=== PATIENT | female | born 1965 | race Caucasian/White ===

== ENCOUNTER 2017-05-28 08:17 | Emergency (ER) | payer MEDICARE, MEDICAID ==
[~2017-05-28] VITALS: Ht 162.6 cm; Wt 82.0 kg
[2017-05-28 08:22] VITALS: BP 144/82
[2017-05-28 08:51] LABS: BASOPHILS # (AUTO) 0.1 X10'3 (0-0.2); BASOPHILS % (AUTO) 0.6 % (0-1); EOSINOPHILS # (AUTO) 0.2 X10'3 (0-0.9); EOSINOPHILS % (AUTO) 2.2 % (0-6); HEMATOCRIT 43.7 % (35.0-45.0); HEMOGLOBIN 14.3 g/dl (12.0-16.0); LYMPHOCYTES # (AUTO) 1.2 X10'3 (1.1-4.8); LYMPHOCYTES % (AUTO) 14.4 % (21-51); MEAN CORPUSCULAR HEMOGLOBIN 25.2 PG (27.0-31.0); MEAN CORPUSCULAR HGB CONC 32.8 % (33.0-36.5); MEAN CORPUSCULAR VOLUME 76.8 FL (78-98); MEAN PLATELET VOLUME 8.8 FL (7.4-10.4); MONOCYTES # (AUTO) 0.5 X10'3 (0-0.9); MONOCYTES % (AUTO) 6.4 % (2-12); NEUTROPHILS # (AUTO) 6.5 X10'3 (1.8-7.7); NEUTROPHILS % (AUTO) 76.4 % (42-75); PLATELET COUNT 174 X10'3 (140-440); RED BLOOD COUNT 5.68 X10'6 (4.20-5.60); RED CELL DISTRIBUTION WIDTH 17.1 % (11.5-14.5); WHITE BLOOD COUNT 8.6 X10'3 (4.5-11.0)
[2017-05-28 09:01] LABS: INR 1.1 INR; PARTIAL THROMBOPLASTIN TIME 25 SECONDS (22-32); PROTHROMBIN TIME 10.9 SECONDS (9.0-12.0)
[2017-05-28 09:06] LABS: ALANINE AMINOTRANSFERASE 56 U/L (12-78); ALBUMIN 3.4 G/DL (3.4-5.0); ALBUMIN/GLOBULIN RATIO 0.9 (1.1-1.5); ALKALINE PHOSPHATASE 124 IU/L (46-116); ANION GAP 9 (8-16); ASPARTATE AMINO TRANSFERASE 54 U/L (10-37); BILIRUBIN,TOTAL 0.7 MG/DL (0.1-1.0); BLOOD UREA NITROGEN 27 MG/DL (7-18); BUN/CREATININE RATIO 28.4 (6.6-38.0); CALCIUM 8.4 MG/DL (8.5-10.1); CHLORIDE 100 MMOL/L (99-107); CREATININE 0.95 MG/DL (0.40-0.90); GLUCOSE 179 MG/DL (70-104); POTASSIUM 3.9 MMOL/L (3.5-5.1); SODIUM 136 MMOL/L (135-145); TOTAL PROTEIN 7.3 G/DL (6.4-8.2); eGFR 62 ML/MIN
== END 2017-05-28 10:24 | disposition left against medical advice (07) ==
LOC: ER 08:18
DX: R06.02 Shortness of breath (principal); Z53.21 Procedure and treatment not carried out due to patient leaving prior to being seen by health care provider
CPT/HCPCS: 36415; 71045; 80053; 83880; 84484; 85025; 85610; 85730; 93005

== ENCOUNTER 2024-11-23 11:33 | Inpatient (IN) | payer MEDICARE, MEDICAID ==
[~2024-11-23] VITALS: Ht 154.9 cm; Wt 88.0 kg
[2024-11-23 12:16] LABS: MEAN PLATELET VOLUME 8.6 FL (7.4-10.4); RED CELL DISTRIBUTION WIDTH 13.6 % (11.5-14.5)
--- NOTE | 2024-11-23 12:25 | Physician Documentation ---
History of Present Illness ~ Chief Complaint: Chest Pain Stated Complaint: DIFIBRILLATOR COMPLICATIONS Time Seen by MD: 12:05 OK to notify your PCP?: No Source: patient, family Mode of Arrival: POV, Ambulatory Exam Limitations: no limitations HPI 59-year-old female with a history of congestive cardiomyopathy diagnosed in 2003 and an AICD placed in 2005. She presented after an episode yesterday at her chiropractor's office. Around 12:15 PM, while receiving electrical stimulation therapy to her lower back, her AICD discharged. Sine the event, she has experienced mild chest soreness. She denies recurrent shocks, palpitations, syncope, or dyspnea. She contacted her county agricultural agent, Dr. Moyer, but the earliest aailable appointment was on the , so she came here for evaluation. Medication Reconciliation Allergies: Coded Allergies: atorvastatin (Verified Allergy, Severe, 11/23/24) gabapentin (Verified Allergy, Severe, 11/23/24) valsartan (Verified Allergy, Severe, 11/23/24) lactose (Unverified Adverse Reaction, Unknown, 11/24/24) pt reports lactose intolerance Uncoded Allergies: ATROVASTIN (Allergy, Intermediate, 05/28/17) Scheduled Amiodarone HCl (Amiodarone HCl), 2 TAB PO BID Empagliflozin (Jardiance), 1 TAB PO QAM, (Reported) Evolocumab (Repatha Sureclick), 140 MG SQ Q2W, (Reported) Furosemide (Furosemide), 1 TAB PO BID, (Reported) Icosapent Ethyl (Icosapent Ethyl), 2 CAP PO BID, (Reported) Metoprolol Succinate (Metoprolol Succinate), 1 TAB PO DAILY, (Reported) Omeprazole (Prilosec), 1 CAP PO DAILY, (Reported) Sacubitril/Valsartan (Entresto 49 mg-51 mg Tablet), 1 TAB PO Q12H, (Reported) Miscellaneous Medications Insulin Regular, Human (Humulin R U-500 Kwikpen), (Reported) Past Medical History Past Medical History: *CARDIOVASCULAR*, Congestive Heart Failure Past Surgical History: pacemaker Drug Use: none Lives In: Home Review of Systems All Other Systems at this time: Reviewed and Negative ROS As stated above in the HPI, otherwise all systems are reviewed and negative. Cardiovascular: Reports: chest pain Physical Exam Vital Signs: RN Vital Signs have been reviewed: Yes, Temperature: 98.9, Source: Oral, Heart Rate: 80, Respiratory Rate: 16, BP: 95/51, Pulse Oximetry: 99, Weight: 88.000 Pulse Oximetry Reflects: adequate oxygenation Physical Exam VITALS: Reviewed and as above. GENERAL: Alert, no apparent distress. HEENT: Normocephalic, atraumatic, PERRL, EOMI, dry mucosa, no erythema RESPIRATORY: Lungs clear, normal breath sounds, no respiratory distress. CHEST: No accessory muscle use, no retractions CV: Regular rate, rhythm, no edema, no murmur, No: JVD GI: Soft, non-tender, bowels sounds present, no rebound, guarding, or rigidity BACK: No CVA tenderness, or swelling MUSCULOSKELETAL No deformities, no edema SKIN: Warm and dry, no rash NEURO: Oriented x4, No motor or sensory deficit PSYCH: Normal mood and affect, no agitation Progress Progress Note 1353: Hospitalist paged. 1435: Case discussed with internal medicine resident, who agrees to evaluate for admission. Results/Orders Reviewed/noted all lab results: Yes Results/Orders Orders - LINO CARD MD Chest,Single View (11/23/24 11:59) Monitor (11/23/24 11:59) Saline Lock (11/23/24 11:59) Electrocardiogram (11/23/24 11:59) Completed Orders - LINO CARD MD Chest,Single View (11/23/24 11:59) Cbc/Diff (11/23/24 11:59) BMP (11/23/24 11:59) PBNP (11/23/24 11:59) Electrocardiogram (11/23/24 11:59) Hs Troponin I W Calculations (11/23/24 11:59) Hs Troponin I W Calculations (11/23/24 13:59) Hs Troponin I W Calculations (11/23/24 14:59) Normal Saline 1000ml (0.9% Sodium Chlori (11/23/24 13:55) TSH (11/23/24 13:53) Hgb A1c (11/23/24 11:45) CK (11/23/24 11:45) C-Reactive Protein (11/23/24 11:45) Lipid Panel (11/23/24 11:45) Osmolality (11/23/24 11:45) Laboratory Tests Test 11/23/24 11:45 11/23/24 14:14 White Blood Count 8.9 Red Blood Count 4.91 Hemoglobin 14.6 Hematocrit 42.5 Mean Corpuscular Volume 86.5 Mean Corpuscular Hemoglobin 29.8 Mean Corpuscular Hemoglobin Concent 34.4 Red Cell Distribution Width 13.6 Platelet Count 306 Mean Platelet Volume 8.6 Neutrophils (%) (Auto) 69.7 Lymphocytes (%) (Auto) 22.8 Monocytes (%) (Auto) 6.1 Eosinophils (%) (Auto) 0.8 Basophils (%) (Auto) 0.6 Neutrophils # (Auto) 6.2 Lymphocytes # (Auto) 2.0 Monocytes # (Auto) 0.5 Eosinophils # (Auto) 0.1 Basophils # (Auto) 0.1 CBC Comment D-Dimer 2.36 H D-Dimer Comment Sodium Level 134 L Potassium Level 4.7 Chloride Level 95 L Carbon Dioxide Level 28.9 Anion Gap 10 Blood Urea Nitrogen 93 H Creatinine 1.83 H Estimated GFR/1.73 m2 28 BUN/Creatinine Ratio 50.8 H Glucose Level 347 H Hemoglobin A1c 8.5 H Osmolality 331 H Calcium Level 9.3 Total Creatine Kinase 57 Troponin I High Sensitivity 29 24 C-Reactive Protein 1.60 H Pro-B-Type Natriuretic Peptide 711 H Albumin 3.7 Triglycerides Level 257 H Cholesterol Level 162 LDL Cholesterol 81 HDL Cholesterol 43 Cholesterol/HDL Ratio 3.8 Procalcitonin < 0.05 Chemistry Comments Troponin I High Sens Percent Delta 17 Troponin I Hi Sens Absolute Change -5 Thyroid Stimulating Hormone (TSH) 1.06 EKG/XRAY/CT/US/VASC/MRI EKG : Additional Comment 1233: EKG interpreted by myself to show NSR at a rate of 69bpm. LAD, LVH, nonspecific ST abnormalities. Chest X-Ray : Additional Comments EXAM: DI CHEST,SINGLE VIEW Indication: CP Technique: Single frontal view of the chest was obtained Comparison: None FINDINGS: Lines and Tubes: None Lungs: No focal consolidation. Pleura: No effusion. No pneumothorax. Cardiomediastinal contours: Unremarkable Bones: No acute osseous abnormality. IMPRESSION: No acute cardiopulmonary disease. Reviewed by myself Medical Decision Making Additional info obtained from: old records Findings The patient states that she had a defibrillation occurred the day prior to her arrival in the emergency department. The patient's AICD is on interpretable because the battery appears to be . The patient was told her battery was by Cardiology in the past. The patient's episode of chest pain may or may not be related to the pacemaker this time we are unsure. The patient will be admitted for cardiac evaluation and further management. The patient's laboratory monitor was interpreted as a sinus rhythm. The patient's pulse oximetry was interpreted as normal and adequate. I did see the patient with the resident I am responsible and have completed the note and I have supervised all aspects of the residents care the patient was admitted to the hospitalist Departure Time of Disposition: 13:53 Disposition: ADMITTED INPATIENT Admitted to Inpatient Unit: yes, to hospitalist Impression: Primary Impression: Hyperglycemia Additional Impressions: Dehydration Chest pain Qualified Codes: R07.9 - Chest pain, unspecified WANDA (acute kidney injury) Condition: Fair Referrals: NO PRIMARY CARE PROVIDER (PCP) Prescriptions Amiodarone HCl (Amiodarone HCl) 200 Mg Tablet 2 TAB PO BID for 30 Days, #88 TAB 0 Refills take 2 tablets of 200 mg every 12 hours for 2 weeks, then take 1 tablet of 200 mg every 12 hours until visiting your county agricultural agent. Prov: BRENT GODOYSAPPHIRE Perry, RES 11/25/24 Signature Scribe Signature: Scribed for Lino Card MD by Raymond Orr . 11/23/24 14:36 Attestation: The note accurately reflects work and decisions made by me.Lino Card MD 11/29/24 11:02 JUAN LARA, RES Nov 23, 2024 12:25 RAYMOND SANCHZE Nov 23, 2024 14:39 LINO CARD MD Nov 29, 2024 11:02
[2024-11-23 12:31] LABS: CREATININE 1.83 MG/DL (0.40-0.90); PRO BRAIN NATRIURETIC PEPTIDE 711 PG/ML (0-125); TOTAL CARBON DIOXIDE 28.9 MMOL/L (24-32); eCRCL 26 ML/MIN; eGFR 28 ML/MIN
--- NOTE | 2024-11-23 12:35 | ELECTROCARDIOGRAPH REPORT ---
[facility] Test Date: 2024-11-23 Test Time: 12:33:55 Pat Name: ROBERT CASTANEDA Department: [facility]-ER Patient ID: [facility]-[id number] Room: ED [facility] Gender: F Chauffeur: : 1965 Requested By: MICAELA JOEL Order Number: [id number] Reading MD: Dr. Michele Bender Measurements Intervals [place] Rate: 69 P: 38 AL: 196 QRS: -33 QRSD: 121 T: 159 QT: 431 QTc: 462 Interpretive Statements Sinus rhythm Ventricular premature complex Left ventricular hypertrophy Anterior Q waves, possibly due to LVH Abnormal T, consider ischemia, lateral leads Baseline wander in lead(s) V2 Electronically Signed On 11-23-2024 19:38:[address] Michele Bender Please click the below link to view image of tracing.
--- NOTE | 2024-11-23 12:55 | RADIOLOGY REPORT ---
EXAM: DI CHEST,SINGLE VIEW Indication: CP Technique: Single frontal view of the chest was obtained Comparison: None FINDINGS: Lines and Tubes: None Lungs: No focal consolidation. Pleura: No effusion. No pneumothorax. Cardiomediastinal contours: Unremarkable Bones: No acute osseous abnormality. IMPRESSION: No acute cardiopulmonary disease.
[2024-11-23] MEDS: normal saline 1000ML IV soln IVB ONE (15:26)
[2024-11-23] MEDS ORDERED: potassium Cl 40MEQ/1/2NS 520ml 520 ML IV PRN (15:30)
[2024-11-23] MEDS ORDERED: magnesium sulf-water 2g/50mL 50 ML IV PRN (15:30)
[2024-11-23] MEDS ORDERED: ondansetron/PF 4mg/2ml inj IV PRN (15:30)
[2024-11-23] MEDS ORDERED: magnesium hydroxide 30ml (MOM) UD suspension PO PRN (15:30)
[2024-11-23] MEDS ORDERED: magnesium sulf-water 4G/100mL 100 ML IV PRN (15:30)
[2024-11-23] MEDS ORDERED: magnesium Cl slow-release 64mg tablet PO PRN (15:30)
[2024-11-23] MEDS ORDERED: potassium Cl 20 mEq SR tablet PO PRN ×2 (15:30)
[2024-11-23] MEDS ORDERED: mag hydrox/Alum hydrox/simeth 30ml oral suspension PO PRN (15:30)
[2024-11-23] MEDS ORDERED: DEXTROSE 15 GM of carb/4 tabs (each vial/BOTTLE has 4 tablets) PO PRN (15:35)
[2024-11-23] MEDS ORDERED: dextrose 50%-water 50ml dispensing syringe IV PRN ×2 (15:35)
[2024-11-23] MEDS ORDERED: glucagon, human recombinant 1mg kit SUBCUT PRN (15:35)
--- NOTE | 2024-11-23 15:44 | HISTORY AND PHYSICAL-Residence ---
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 Since then she has moderate chest discomfort but denies syncope, palpitation, dizziness, shortness of breath, cough, fever or hemoptysis. No other symptoms reported. Allergies: Coded Allergies: atorvastatin (Verified Allergy, Severe, 11/23/24) gabapentin (Verified Allergy, Severe, 11/23/24) valsartan (Verified Allergy, Severe, 11/23/24) lactose (Unverified Adverse Reaction, Unknown, 11/24/24) pt reports lactose intolerance Uncoded Allergies: ATROVASTIN (Allergy, Intermediate, 05/28/17) Past Medical History Past Medical History Cardiomyopathy in 2003 secondary to viral myocarditis Heart failure with reduced ejection fraction Francisco esophagus, last EGD in 2017 Type 2 diabetes mellitus on high dose insulin CVA in 2013 Hypertension Hyperlipidemia Past Surgical History Surgical History Comment ICD insertion in 2007 with replacement in 2016 due to device infection Cholecystectomy Past Social History Smoking: Quit greater than 1 year (Patient used to smoke one pack a day, quit in 2003) Alcohol Use: Occasionally Drug Use: Marijuana Lives with: Spouse Lives In: Home ROS All Other Systems: Reviewed and Negative Constitutional: Reports: weakness Eyes: Reports: no symptoms reported ENT: Reports: no symptoms reported Respiratory: Reports: no symptoms reported Cardiovascular: Reports: chest pain Gastrointestinal: Reports: no symptoms reported Genitourinary: Reports: no symptoms reported Female Genitalia: Reports: no reported symptoms Neurological: Reports: no symptoms reported Musculoskeletal: Reports: back pain Integumentary: Reports: no symptoms reported Allergic/Immunologic: Reports: no symptoms reported Hematologic/Lymphatic: Reports: no symptoms reported Endocrine: Reports: no symptoms reported Psychiatric: Reports: no symptoms reported Exam Vitals: Vital Signs Date Time Temp Pulse Resp B/P (MAP) Pulse Ox O2 Delivery O2 Flow Rate FiO2 11/23/24 12:15 68 16 105/45 (65) 97 0 11/23/24 11:54 98.9 General: General: Awake and Alert, no acute distress. HEENT: Conjunctiva pink, Sclera clear, Mucus Membranes dry Neck: Supple without masses and tenderness. Resp: Unlabored. Lungs clear to auscultation bilaterally. Heart: Regular Rate and rhythm, normal S1 and S2 without murmur, rub or gallop. Abdomen: Soft and non tender no organomegaly Extremities: No cyanosis,clubbing or edema. Skin: Warm and Dry. Diagnostic Data Last Recorded Lab Results: 11/23/24 1145 11/23/24 1145 Advance Care Planning Advanced Care plannin - 30 Minutes (Patient wishes to be full code) Additional Plan Assessment and plan 1. Chest discomfort after AICD shock and discharge 2. Chronic systolic HFrEF (EF 30%), not on acute exacerbation Assessment Patient felt a shock and chest discomfort while receiving electrical stimulation therapy Denies fever, cough or shortness for breath States using Lasix 80 mg b.i.d. Troponins negative BNP 711 WBC 8.9 CXR: No acute disease Plan Continuous telemetry Cardiology consultation Continue home medication Hold Lasix today Unable to contact [facility], responsive before the AICD Pending med reconciliation 3. Dehydration 4. Acute kidney injury, most likely secondary to prerenal nephropathy Patient states using Lasix 80 mg b.i.d. Minimal decrease of oral intake No nausea, vomiting or diarrhea Plan Patient received 2000 mL of NS in the ER Hold Lasix today Cautious hydration with LR at 75 mL/hr 5. Type 2 diabetes mellitus 6. Hypertension, well controlled 7. Hyperlipidemia, well controlled On insulin 35 - 35 - 25 units Ordered A1c Ordered lipid panel Hyper/hypoglycemia protocol Code Status: Full code DVT prophylaxis: Heparin Analgesia/sedation: Morphine/[place] Line/tube: PIV GI prophylaxis: None Nutrition: 75 carb diet Physical therapy: Yes Prognosis: Guarded Disposition: Admit to medical floor with telemetry. Resident attestation The above note has been reviewed and supervised by a senior resident PGY2/PGY3 Patient was seen, examined and discussed with the attending physician Date of Service: Nov 23, 2024 Billing Provider: NATALIA ROSA MD Common Visit Codes: 61869-KDPBCAT INP/OBS CARE (HIGH) Secondary Visit Codes: 02102-[id number] CARE PLAN 30 MINUTES KATHLEEN BOND RES Nov 23, 2024 15:44 NATALIA ROSA MD Nov 24, 2024 22:01
[2024-11-23 15:53] LABS: OSMOLALITY 331 MOSM/K (280-300)
[2024-11-23 15:56] LABS: CHOL/HDL RATIO 3.8 (0.00-4.99); LDL CHOLESTEROL 81 MG/DL (50-100)
[2024-11-23] MEDS: INSULIN LISPRO 100 UNIT/ML INSULN.PEN MULTI-DOSE SQ SCH (17:24)
--- NOTE | 2024-11-23 18:55 | CARDIOLOGY REPORT ---
APPROVED REPORT EXAM: Comprehensive 2D, Doppler, and color-flow Echocardiogram. Patient Location: ER RM 7 Blood Pressure: 104/45 mmHg Heart Rate: 67 bpm Rhythm: Sinus Indications Congestive Heart Failure Cardiomyopathy ProBNP: 711 HX of CHF AICD SHAPE BRICK MOLDER: Valentina Moyer MD Previous ECHO: Unavailable 2D Dimensions LA Diam4.6 cm IVSd 0.8 (0.7-1.1cm) LVDd 6.1 cm PWd 1.1 (0.7-1.1cm) IVSs 1.3 (0.8-1.2cm) LVDs 5.1 (2.5-4.0cm) PWs 1.1 (0.8-1.2cm) LVOT Diameter 2.17 (1.8-2.4cm) LVEF(%) 34.1 (>50%) Ao Asc Diam.3.69 cm IVC 13.60 mmFS (%) 16.6 % SV 64.1 ml CO 4.3 L/min M-Mode Dimensions Left Atrium(MM) 4.76 (2.5-4.0cm) Aortic Root 3.27 (2.2-3.7cm) Aortic Cusp Exc 1.83 (1.5-2.0cm) MV EPSS 0.7 (<0.5cm) Aortic Valve AoV Peak Andrew. 108.8 cm/s AoV VTI 23.9 cm AO Peak GR. 4.7 mmHg AO Mean GR. 2 mmHg LVOT VTI 19.45 cm LVOT Peak Andrew. 77.1 cm/s FAN(VTI)/BSA 3.00 cm2/m2 FAN (VTI) 3.00 cm2 AI P 1/2 Time 560 ms Mitral Valve MV E Velocity 60.3 cm/s MV Peak Gr. 1 mmHg MV DECEL TIME 188 ms MV A Velocity 90.4 cm/s MV PHT 68 ms E/A Ratio 0.7 MVA (PHT) 3.24 cm2 MV VMax60.8 cm/s TDI Lateral E' P. V7.70 cm/s E/Lateral E' 7.8 Tricuspid Valve TR P. Velocity 285 cm/s RAP ESTIMATE 10 mmHg TR Peak Gr. 33 mmHg RVSP 43 mmHg LEFT VENTRICLE Left ventricle is mildly dilated with normal wall thickness. Overall systolic function is severely de creased. LVEF is pytkeuwifunsew71-79%. ATRIA Left atrium is moderately dilated. AORTIC VALVE Trileaflet AV appears mildy sclerotic without stenosis. Moderate insufficiency. MITRAL VALVE Mild mitral annular calcification without stenosis. Trace regurgitation. TRICUSPID VALVE The tricuspid valve is normal in structure with mild to moderate regurgitation. PULMONIC VALVE Pulmonic valve is grossly normal in structure with physiologic insufficiency. GREAT VESSELS The aortic root is normal in size. The ascending aorta is normal in size. The IVC is normal in size a nd collapses >50% with inspiration. PERICARDIUM Normal pericardium. No effusion. Other Information Study Quality: Adequate Conclusion Left ventricle is mildly dilated with normal wall thickness. Overall systolic function is severely d ecreased. LVEF is approximately 30-35%. Left atrium is moderately dilated. Trileaflet AV appears mildy sclerotic without stenosis. Moderate insufficiency. Mild mitral annular calcification without stenosis. Trace regurgitation. The tricuspid valve is normal in structure with mild to moderate regurgitation. Normal pericardium. No effusion.
[2024-11-23] MEDS: K and/or MAG REPLACEMENT MC SCH (20:00)
[2024-11-23] MEDS: heparin, porcine 5000 units/ml vial SQ SCH (20:47)
[2024-11-23] MEDS: docusate sod 100mg capsule PO SCH (20:47)
[2024-11-23] MEDS ORDERED: INSU500I (22:44)
[2024-11-23] MEDS ORDERED: EVOL140P3 SQ (22:44)
[2024-11-23] MEDS ORDERED: EMPA25TA PO (22:44)
[2024-11-23] MEDS ORDERED: METO-395 PO (22:44)
[2024-11-23] MEDS ORDERED: OMEP40CA21 PO (22:44)
[2024-11-23] MEDS ORDERED: FURO80TA3 PO (22:44)
[2024-11-23] MEDS ORDERED: SACU1TAB7 PO (22:44)
[2024-11-23 23:28] VITALS: BP 106/37; PULSE 65; RESP 20; TEMP 97.7; O2SAT 100
[2024-11-24] MEDS ORDERED: ICOS1CAP2 PO (04:58)
[2024-11-24 06:00] VITALS: BP 118/40; PULSE 62; RESP 20; TEMP 97.4; O2SAT 100
[2024-11-24 06:47] LABS: MEAN PLATELET VOLUME 8.4 FL (7.4-10.4); RED CELL DISTRIBUTION WIDTH 13.3 % (11.5-14.5)
[2024-11-24 07:08] LABS: CREATININE 1.36 MG/DL (0.40-0.90); TOTAL CARBON DIOXIDE 28.2 MMOL/L (24-32); eCRCL 34 ML/MIN; eGFR 40 ML/MIN
[2024-11-24] MEDS: INSULIN LISPRO 100 UNIT/ML INSULN.PEN MULTI-DOSE SQ SCH ×2 (07:30→12:30)
[2024-11-24] MEDS ORDERED: sacubitril/valsartan 49mg-51mg tablet PO SCH (08:00)
[2024-11-24] MEDS: metoprolol succinate 25mg (24-HOUR) SR. Tablet PO SCH (08:00)
[2024-11-24] MEDS: EMPAGLIFLOZIN 25 MG TABLET PO SCH (08:09)
[2024-11-24] MEDS: pantoprazole 40mg Tablet.DR PO SCH (08:10)
[2024-11-24 08:11] VITALS: BP 121/48; PULSE 65
[2024-11-24 08:49] LABS: PHOSPHORUS 3.6 MG/DL (2.3-4.5)
[2024-11-24] MEDS: sacubitril/valsartan 49mg-51mg tablet PO ONE (09:15)
[2024-11-24 10:00] VITALS: BP 125/52; PULSE 75; RESP 16; TEMP 98.9; O2SAT 100
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
--- NOTE | 2024-11-24 17:39 | PROGRESS NOTE- Residence ---
Progress Note - Resident Providers to CC Resident Creating Document: KATHLEEN BOND RES ~ Antibiotic Timeout Antibiotic Ordered?: No Subjective Patient was seen and examined at bedside. She is asymptomatic today, tolerating oral diet, denies chest pain or shortness for breath. No overnight events reported. Objective Vital Signs Date Time Temp Pulse Resp B/P (MAP) Pulse Ox O2 Delivery O2 Flow Rate FiO2 11/24/24 10:00 98.9 75 16 125/52 (76) 100 Room Air 11/24/24 08:00 0.0 Result Diagram: 11/24/24 0544 11/24/24 0544 General: Awake and Alert, no acute distress. HEENT: Conjunctiva pink, Sclera clear, Mucus Membranes moist Neck: Supple without masses and tenderness. Resp: Unlabored. Lungs clear to auscultation bilaterally. Heart: Regular Rate and rhythm, normal S1 and S2 without murmur, rub or gallop. Abdomen: Soft and non tender no organomegaly Extremities: No cyanosis,clubbing or edema. Skin: Warm and Dry. Coagulation Studies Laboratory Tests Test 11/23/24 11:45 D-Dimer 2.36 MG/L FEU (0-0.50) H D-Dimer Comment Plan Plan Assessment and plan 1. AICD defibrillation 2. Chronic systolic HFrEF (EF 30%), not on acute exacerbation Assessment Patient felt a shock and chest discomfort while receiving electrical stimulation therapy Denies fever, cough or shortness for breath States using Lasix 80 mg b.i.d. Troponins negative BNP 711 WBC 8.9 CXR: No acute disease Plan -11/23/2024 Continuous telemetry Cardiology consultation Continue home medication Hold Lasix today 11/24/2024 Patient started on amiodarone, to be continued as outpatient Possible discharge tomorrow 3. Dehydration - resolved 4. Acute kidney injury, most likely secondary to vasomotor nephropathy Cr 1.83, BUN 93 Patient states using Lasix 80 mg b.i.d. Minimal decrease of oral intake No nausea, vomiting or diarrhea Plan - 11/23/2024 Patient received 2000 mL of NS in the ER Hold Lasix today 11/24/2024 Cr 1.36, BUN 59 Monitor daily 5. Type 2 diabetes mellitus 6. Hypertension, well controlled 7. Hyperlipidemia, well controlled On insulin 35 - 35 - 25 units A1c 8.5 Triglycerides 257, LDL 81, HDL 43 Hyper/hypoglycemia protocol Patient is waiting back joiner consult outpatient Code Status: Full code DVT prophylaxis: Heparin Analgesia/sedation: Morphine/[place] Line/tube: PIV GI prophylaxis: None Nutrition: 75 carb diet Physical therapy: Yes Prognosis: Guarded Disposition: Continue medical treatment. Anticipated discharge tomorrow. Resident MD attestation The above note has been reviewed and supervised by a senior resident PGY2/PGY3 Patient was seen, examined and discussed with the attending physician Date of Service: Nov 24, 2024 Billing Provider: NATALIA ROSA MD Common Visit Codes: 77716-[id number] INP/OBS CARE(HIGH) KATHLEEN BOND, RES Nov 24, 2024 17:39 NATALIA ROSA MD Nov 24, 2024 22:06
[2024-11-24 18:00] VITALS: BP 121/48; PULSE 68; RESP 16; TEMP 98; O2SAT 97
[2024-11-24] MEDS: sacubitril/valsartan 49mg-51mg tablet PO SCH ×2 (20:00)
[2024-11-24] MEDS: INSULIN LISPRO 100 UNIT/ML INSULN.PEN MULTI-DOSE SQ ONE (21:54)
[2024-11-24 22:00] VITALS: BP 120/51; PULSE 68; RESP 16; TEMP 97.7; O2SAT 99
[2024-11-24] MEDS: DEXTROSE 15 GM of carb/4 tabs (each vial/BOTTLE has 4 tablets) PO PRN (23:53)
[2024-11-25 07:03] LABS: MEAN PLATELET VOLUME 8.4 FL (7.4-10.4); RED CELL DISTRIBUTION WIDTH 13.7 % (11.5-14.5)
[2024-11-25] MEDS ORDERED: AMIO200T73 PO (10:59)
[2024-11-25 11:13] LABS: HBSAG SCREEN Negative (Negative); HEP B CORE AB, IGM Negative (Negative); HEP B CORE AB, TOT Negative (Negative)
[2024-11-25 12:10] LABS: CREATININE 1.38 MG/DL (0.40-0.90); TOTAL CARBON DIOXIDE 28.8 MMOL/L (24-32); eCRCL 34 ML/MIN; eGFR 39 ML/MIN
--- NOTE | 2024-11-25 17:22 | DISCHARGE SUMMARY-Residence ---
Discharge Summary Providers to CC Resident Creating Document: RADHAMES BOND RES ~ Discharge Summary Admission Diagnosis: AICD fibrillation, dehydration, WANDA Hospital Course DATE OF ADMISSION: 11/23/2024 DATE OF DISCHARGE: 11/25/2024 Chest x-ray: No acute cardiopulmonary disease. Echocardiogram: Left ventricle is mildly dilated with normal wall thickness. Overall systolic function is severely decreased. LVEF is approximately 30-35%. Left atrium is moderately dilated. Trileaflet AV appears mildy sclerotic without stenosis. Moderate insufficiency. Mild mitral annular calcification without stenosis. Trace regurgitation. The tricuspid valve is normal in structure with mild to moderate regurgitation. Normal pericardium. No effusion. Laboratory Tests Test 11/23/24 17:24 11/23/24 20:51 11/24/24 00:02 11/24/24 05:44 Glucometer 251 mg/dl 88 mg/dl 117 mg/dl White Blood Count 7.4 X10'3 Red Blood Count 4.34 X10'6 Hemoglobin 12.6 g/dl Hematocrit 37.2 % Mean Corpuscular Volume 85.8 FL Mean Corpuscular Hemoglobin 29.2 PG Mean Corpuscular Hemoglobin Concent 34.0 g/dL Red Cell Distribution Width 13.3 % Platelet Count 261 X10'3 Mean Platelet Volume 8.4 FL Neutrophils (%) (Auto) 55.8 % Lymphocytes (%) (Auto) 36.3 % Monocytes (%) (Auto) 6.6 % Eosinophils (%) (Auto) 1.0 % Basophils (%) (Auto) 0.3 % Neutrophils # (Auto) 4.1 X10'3 Lymphocytes # (Auto) 2.7 X10'3 Monocytes # (Auto) 0.5 X10'3 Eosinophils # (Auto) 0.1 X10'3 Basophils # (Auto) 0.0 X10'3 CBC Comment Sodium Level 137 MMOL/L Potassium Level 3.6 MMOL/L Chloride Level 101 MMOL/L Carbon Dioxide Level 28.2 MMOL/L Anion Gap 8 Blood Urea Nitrogen 59 MG/DL Creatinine 1.36 MG/DL Estimated GFR/1.73 m2 40 ML/MIN BUN/Creatinine Ratio 43.4 Glucose Level 124 MG/DL Calcium Level 8.7 MG/DL Phosphorus Level 3.6 MG/DL Magnesium Level 2.8 MG/DL Total Bilirubin 0.5 MG/DL Aspartate Amino Transf (AST/SGOT) 24 U/L Alanine Aminotransferase (ALT/SGPT) 23 U/L Alkaline Phosphatase 118 IU/L Total Protein 7.3 G/DL Albumin 3.1 G/DL Globulin 4.2 G/DL Albumin/Globulin Ratio 0.7 Chemistry Comments Hepatitis B Surface Antigen Negative Hepatitis B Core Total Antibody Negative Hepatitis B Core IgM Antibody Negative Test 11/24/24 06:50 11/24/24 09:09 11/24/24 13:08 11/24/24 16:53 Glucometer 167 mg/dl 238 mg/dl 81 mg/dl 152 mg/dl Test 11/24/24 20:37 11/24/24 23:50 11/25/24 00:51 11/25/24 05:53 Glucometer 198 mg/dl 63 mg/dl 127 mg/dl 141 mg/dl Test 11/25/24 06:09 11/25/24 07:42 White Blood Count 8.5 X10'3 Red Blood Count 4.72 X10'6 Hemoglobin 13.5 g/dl Hematocrit 40.6 % Mean Corpuscular Volume 86.0 FL Mean Corpuscular Hemoglobin 28.7 PG Mean Corpuscular Hemoglobin Concent 33.3 g/dL Red Cell Distribution Width 13.7 % Platelet Count 283 X10'3 Mean Platelet Volume 8.4 FL Neutrophils (%) (Auto) 63.1 % Lymphocytes (%) (Auto) 29.4 % Monocytes (%) (Auto) 6.3 % Eosinophils (%) (Auto) 0.7 % Basophils (%) (Auto) 0.5 % Neutrophils # (Auto) 5.4 X10'3 Lymphocytes # (Auto) 2.5 X10'3 Monocytes # (Auto) 0.5 X10'3 Eosinophils # (Auto) 0.1 X10'3 Basophils # (Auto) 0.0 X10'3 CBC Comment Sodium Level 138 MMOL/L Potassium Level 4.9 MMOL/L Chloride Level 102 MMOL/L Carbon Dioxide Level 28.8 MMOL/L Anion Gap 7 Blood Urea Nitrogen 38 MG/DL Creatinine 1.38 MG/DL Estimated GFR/1.73 m2 39 ML/MIN BUN/Creatinine Ratio 27.5 Glucose Level 146 MG/DL Calcium Level 9.2 MG/DL Magnesium Level 2.7 MG/DL Total Bilirubin 0.5 MG/DL Aspartate Amino Transf (AST/SGOT) 20 U/L Alanine Aminotransferase (ALT/SGPT) 26 U/L Alkaline Phosphatase 124 IU/L Total Protein 7.7 G/DL Albumin 3.3 G/DL Globulin 4.4 G/DL Albumin/Globulin Ratio 0.8 Chemistry Comments Glucometer 173 mg/dl Discharge Diagnosis\Comment: 1. AICD defibrillation 2. Chronic systolic HFrEF (EF 30%), not on acute exacerbation 3. Dehydration - resolved 4. Acute kidney injury, most likely secondary to vasomotor nephropathy 5. Type 2 diabetes mellitus 6. Hypertension, well controlled 7. Hyperlipidemia, well controlled Operations\Procedures: None Consultants: Cardiology Complications: None Condition on DC: Stable New Medications: Amiodarone HCl (Amiodarone HCl) 200 Mg Tablet 2 TAB PO BID for 30 Days, #88 TAB 0 Refills take 2 tablets of 200 mg every 12 hours for 2 weeks, then take 1 tablet of 200 mg every 12 hours until visiting your police patrol lieutenant. Continued Medications: Empagliflozin (Jardiance) 25 Mg Tablet 1 TAB PO QAM Evolocumab (Repatha Sureclick) 140 Mg/Ml Pen.injctr 140 MG SQ Q2W Furosemide (Furosemide) 80 Mg Tablet 1 TAB PO BID Icosapent Ethyl (Icosapent Ethyl) 1 Gram Capsule 2 CAP PO BID Insulin Regular, Human (Humulin R U-500 Kwikpen) 500/Ml (3) Insuln.pen Metoprolol Succinate (Metoprolol Succinate) 25 Mg Tab.sr.24h 1 TAB PO DAILY Omeprazole (Prilosec) 40 Mg Capsule 1 CAP PO DAILY Sacubitril/Valsartan (Entresto 49 mg-51 mg Tablet) 49 Mg-51 Mg Tablet 1 TAB PO Q12H for 30 Days, #60 TAB 0 Refills Discharge Summary: History of present illness This is a 59-year-old female patient with past medical history of 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 Since then she has moderate chest discomfort but denies syncope, palpitation, dizziness, shortness of breath, cough, fever or hemoptysis. No other symptoms reported. Hospital course 59-year-old female patient admitted for an episode of AICD defibrillation. She had chest discomfort secondary to the shock but denied any chest pain, shortness of breath, palpitation, dizziness, syncope or lightheadedness. She was evaluated by Dr. Moyer who recommended amiodarone 400 mg b.i.d. for two weeks. [employer] interrogated the device and concluded that she most likely received an inappropriate defibrillation. There was concern that the leads might not be functioned properly, so the device was turned off. Additionally, the patient was dehydrated and had acute kidney injury which resolved after Lasix was held. Patient is asymptomatic and is stable to be discharged on LifeVest and outpatient cardiac follow-up. Discharge physical exam General: Awake and Alert, no acute distress. HEENT: Conjunctiva pink, Sclera clear, Mucus Membranes moist. Neck: Supple without masses and tenderness. Resp: Unlabored. Lungs clear to auscultation bilaterally. Heart: Regular Rate and rhythm, normal S1 and S2 without murmur, rub or gallop. Abdomen: Soft and non tender no organomegaly Extremities: No cyanosis,clubbing or edema. Skin: Warm and Dry. Discharge medications See below Discharge instructions Follow up with your primary care doctor in 1-2 weeks Follow up with Dr Moyer Take amiodarone 400mg twice a day for 2 weeks, then reduce the dose to 200 mg twice a day until cardiology evaluation Continue home medication Come back in case of chest pain, shortness of breath, palpitations or any concerning symptoms *Problems/Diagnosis: (1) Type 2 diabetes mellitus Status: Chronic (2) Hyperlipidemia Status: Chronic (3) Hypertension Status: Chronic (4) Heart failure with reduced ejection fraction (HFrEF, <= 40%) Status: Chronic (5) ICD (implantable cardioverter-defibrillator) malfunction Status: Acute (6) ICD (implantable cardioverter-defibrillator) lead failure Status: Acute (7) WANDA (acute kidney injury) Status: Acute Permanent Comment: Most likely secondary to vasomotor nephropathy Last Edited By: Radhames Bond - Resident on Nov 25, 2024 17:16 (8) Dehydration Status: Acute (9) Hyperglycemia Status: Chronic Total Time Spent on D/C: > 30 Minutes Date of Service: Nov 25, 2024 Billing Provider: NATALIA ROSA MD Common Visit Codes: 12307-YHX/OBS DISCH DAY >30min RADHAMES BOND RES Nov 25, 2024 17:22 NATALIA ROSA MD Nov 26, 2024 08:42
== END 2024-11-25 10:48 | disposition home or self-care (01) | DRG 314 ==
LOC: ER 11:34 → ED HOLD 14:37 → ORTHO 4S 23:20
PROVIDERS: ADMIT Internal Medicine; ATTEND Internal Medicine
PROC: 4B02XTZ Measurement of Cardiac Defibrillator, External Approach (ICD-10-PCS; principal; 2024-11-25)
DX: T82.897A Other specified complication of cardiac prosthetic devices, implants and grafts, initial encounter (principal); N17.0 Acute kidney failure with tubular necrosis; I42.8 Other cardiomyopathies; I50.22 Chronic systolic (congestive) heart failure; E86.0 Dehydration; I11.0 Hypertensive heart disease with heart failure; Y83.8 Other surgical procedures as the cause of abnormal reaction of the patient, or of later complication, without mention of misadventure at the time of the procedure; E11.65 Type 2 diabetes mellitus with hyperglycemia; E78.5 Hyperlipidemia, unspecified; Z88.8 Allergy status to other drugs, medicaments and biological substances; Z86.73 Personal history of transient ischemic attack (TIA), and cerebral infarction without residual deficits; Z83.3 Family history of diabetes mellitus; Y92.89 Other specified places as the place of occurrence of the external cause
CPT/HCPCS: 36415; 71045; 80048; 80053; 80061; 82550; 82948; 83036; 83735; 83880; 83930; 84100; 84145; 84443; 84484; 85025; 85379; 86140; 86704; 86705; 87081; 87340; 93005; 93306; 96360; 96372; 97161; 97530; 99285; G0378; J1644; J1815; J1938; J7030